=== PATIENT | male | born 1975 | race Caucasian/White ===

== ENCOUNTER 2021-03-29 00:23 | Emergency (ER) | payer MEDICAID ==
[~2021-03-29] VITALS: Ht 152.4 cm; Wt 90.7 kg
[2021-03-29] MEDS ORDERED: IBUPROFEN 800800 MG PO (01:09)
[2021-03-29] MEDS ORDERED: AMOXICILLIN 50500 MG PO (01:09)
[2021-03-29 01:29] VITALS: BP 132/86
== END 2021-03-29 01:31 | disposition home or self-care (01) ==
LOC: M.ERS 00:23
DX: K02.9 Dental caries, unspecified (principal); M79.18 Myalgia, other site